=== PATIENT | male | born 1980 | race Caucasian/White ===

== ENCOUNTER 2018-03-19 16:53 | Emergency (ER) | payer SELFPAY ==
[~2018-03-19] VITALS: Ht 190.5 cm; Wt 95.0 kg
[2018-03-19] MEDS ORDERED: SODIUM CHLORIDE 0.9% 1,000 ML IV ONE (17:26)
[2018-03-19] MEDS ORDERED: PANTOPRAZOLE 80 MG in SODIUM CHLORIDE 0.9% 100 ML IV SCH (17:26)
[2018-03-19] MEDS ORDERED: PANTOPRAZOLE 80 MG in SODIUM CHLORIDE 0.9% 50 ML IVPB ONE (17:26)
[2018-03-19] MEDS ORDERED: SODIUM CHLORIDE FLUSH 10ML SYR IVF ONE (17:30)
[2018-03-19] MEDS ORDERED: METOCLOPRAMIDE 5 MG/ML, 2ML IVPush ONE (17:30)
[2018-03-19] MEDS ORDERED: PLEASE ENTER ALLERGIES MC SCH (17:30)
[2018-03-19 17:47] LABS: BASOPHILS # (AUTO) 0.03 x10^3/uL (0-0.1); BASOPHILS % (AUTO) 1 % (0-1); EOSINOPHILS # (AUTO) 0.19 x10^3/uL (0-0.4); EOSINOPHILS % (AUTO) 3 % (1-7); LYMPHOCYTES # (AUTO) 0.92 x10^3/uL (1-3.4); LYMPHOCYTES % (AUTO) 12 % (22-44); MD NO; MEAN CORPUSCULAR HEMOGLOBIN 27.3 pg (27.5-34.5); MEAN CORPUSCULAR HGB CONC 33.2 g/dL (33.2-36.2); MEAN CORPUSCULAR VOLUME 82.2 fL (81-97); MEAN PLATELET VOLUME 9.4 fL (7.4-10.4); MONOCYTES # (AUTO) 0.53 x10^3/uL (0.2-0.8); MONOCYTES % (AUTO) 7 % (2-9); NEUTROPHILS # (AUTO) 5.78 x10^3/uL (1.8-6.8); NEUTROPHILS % (AUTO) 78 % (42-75); PLATELET COUNT 197 x10^3/uL (130-400); RED BLOOD COUNT 5.08 x10^6/uL (4.38-5.82); RED CELL DISTRIBUTION WIDTH 14.7 % (9.4-14.8)
[2018-03-19] MEDS ORDERED: METOCLOPRAMIDE 5 MG/ML, 2ML ONE (17:52)
[2018-03-19] MEDS ORDERED: HYDROmorphone 2 MG/ML, 1ML ONE (17:52)
[2018-03-19 17:57] LABS: INTERNATIONAL NORMALIZED RATIO 1.02 (0.93-1.1); PROTHROMBIN TIME 10.5 Seconds (9.6-11.5)
[2018-03-19 17:58] LABS: ALANINE AMINOTRANSFERASE 29 U/L (12-78); ALBUMIN 3.7 g/dL (3.4-5.0); ANION GAP 11 mmol/L (5-15); CALCIUM 7.9 mg/dL (8.5-10.1); CHLORIDE 110 mmol/L (98-107)
[2018-03-19 18:01] LABS: ALKALINE PHOSPHATASE 80 U/L (45-117); BILIRUBIN,TOTAL 0.4 mg/dL (0.2-1.0); CREATININE 0.88 mg/dL (0.7-1.3); TOTAL PROTEIN 6.7 g/dL (6.4-8.2)
[2018-03-19] MEDS: HYDROmorphone 1 MG/ML, 1ML IVPush PRN ×2 (18:11→18:31)
[2018-03-19 18:37] VITALS: BP 113/60
== END 2018-03-19 19:19 | disposition left against medical advice (07) ==
LOC: ED 18:53
DX: K92.2 Gastrointestinal hemorrhage, unspecified (principal); K92.0 Hematemesis
CPT/HCPCS: 36415; 74176; 80053; 82140; 83690; 85025; 85610; 85730; 86850; 86900; 96365; 96375; 99285; C9113; J1170; J2765; J7030